=== PATIENT | female | born 1985 | race Caucasian/White ===

== ENCOUNTER 2016-06-14 12:41 | Emergency (ER) | payer OTHER ==
[2016-06-14] MEDS ORDERED: IOPAMIDOL 300 (61%) 150 ML VIAL IV ONE (12:42)
[2016-06-14] MEDS ORDERED: SODIUM CHLORIDE 0.9% 1,000 ML ONE (14:52)
[2016-06-14] MEDS ORDERED: MORPHINE SULFATE 4 MG/ML SYRINGE ONE (14:52)
[2016-06-14] MEDS ORDERED: ONDANSETRON 4 MG/2ML 2 ML VIAL ONE (14:52)
[2016-06-14 15:02] LABS: ABSOLUTE NEUTROPHIL COUNT 13.5 K/mm3 (1.8-7.7); BASO # 0.1 K/mm3 (0.0-0.2); BASO % 0.4 % (0.2-1.0); EOS # 0.2 (0.0-0.5); IMM NEUT # 0.1 K/mm3 (0-0.2); IMM NEUT% 0.3 % (0-1); LYMPH # 0.7 (1.0-4.8); LYMPH % 4.7 % (15-45); MEAN CELL VOLUME 84.3 fl (81.0-99.0); MEAN CORPUSCULAR HEMOGLOBIN 28.7 pg (27.0-31.0); MEAN CORPUSCULAR HGB CONC 34.1 g/dl (33.0-37.0); MEAN PLATELET VOLUME 9.9 fl (7.4-10.4); MONO # 0.7 (0.0-0.8); MONO % 4.3 % (4-12); NEUT % 89.3 % (43-75); PLATELET COUNT 377 K/mm3 (130-400); RED CELL DISTRIBUTION WIDTH 12.5 % (11.5-14.5)
[2016-06-14 15:05] LABS: URINE BILIRUBIN NEGATIVE (NEGATIVE); URINE BLOOD NEGATIVE (NEGATIVE); URINE GLUCOSE (UA) NEGATIVE (NEGATIVE); URINE LEUKOCYTE ESTERASE NEGATIVE (NEGATIVE); URINE NITRITE NEGATIVE (NEGATIVE); URINE PROTEIN NEGATIVE (NEGATIVE); URINE UROBILINOGEN NORMAL (0-1 mg/dl)
[2016-06-14 15:09] LABS: URINE APPEARANCE CLEAR; URINE COLOR STRAW
[2016-06-14] MEDS ORDERED: HYDROMORPHONE HCL 1 MG/ML SYRINGE ONE (15:13)
[2016-06-14 15:24] LABS: ALB/GLOB RATIO 1.3 (>1.0); ALBUMIN 4.4 gm/dL (3.5-5.7); CALCIUM 9.4 mg/dL (8.6-10.3)
--- NOTE | 2016-06-14 16:08 | US ---
ABDOMINAL-LIMITED COMPARISON: Ultrasound gallbladder 01/31/2016 HISTORY: 30-year-old female. Right upper quadrant pain for 12 hours. Cholecystectomy March 2016. White blood cell count elevated at 15.1 K. FINDINGS: Gall bladder: Cholecystectomy. Common hepatic duct: 2.1 mm. Common bile duct: 4.0-5.2 mm. Unable to see at the head of the pancreas because of bowel gas. Liver: Normal length, 13.6 cm. Normal echogenicity. No mass or cyst. No bile duct dilation. Hepatopedal flow in the portal vein. IMPRESSION: 1. Status post cholecystectomy. Normal appearance of the liver and the extra hepatic bile ducts. The report was sent to the emergency department electronic medical record system 06/14/2016 at 16:05
[2016-06-14] MEDS ORDERED: LORAZEPAM 2 MG/ML 1ML SDV ONE (17:35)
--- NOTE | 2016-06-14 18:15 | CT ---
CT ABDOMEN AND PELVIS WITH CONTRAST HISTORY: Upper abdominal pain. Prior laparoscopic cholecystectomy. TECHNIQUE: Following intravenous administration of 125 mL Isovue-300, contiguous axial images were acquired from the lung bases to the ischial tuberosities. Oral contrast was not administered. COMPARISON: 06/02/2015 FINDINGS: LUNG BASES: No gross airspace consolidation or pleural effusion. LIVER: No focal lesion. SPLEEN: No focal lesion. STOMACH: Moderate distention with suggested wall thickening of the pylorus and proximal duodenum. PANCREAS: No focal lesion. ADRENAL GLANDS: No mass effect. KIDNEYS: No focal lesion. No collecting system dilatation. GALLBLADDER: Present. BOWEL: Limited assessment of the distal colon due to decompression. No abnormal small bowel dilatation. Fluid content within the proximal colon. Wall enhancement of multiple small bowel loops. Findings of minor colonic diverticulosis without diverticulitis. APPENDIX: Not clearly identified. PELVIC ORGANS: 2.1 cm complex cystic lesion on the left, which may relate to ruptured cyst. FREE FLUID: Trace free fluid ABDOMINOPELVIC LYMPH NODES: No abnormally enlarged lymph nodes identified. ABDOMINAL AORTA: Normal caliber. OSSEOUS STRUCTURES: No grossly destructive lesions. IMPRESSION: 1. Wall thickening raising suspicion for gastroduodenitis, consider endoscopy if there is concern for possible peptic ulcer disease. 2. Status post cholecystectomy without biliary dilatation. 3. Nonspecific wall enhancement of small bowel which indicate enteritis. Fluid content within the colon compatible with diarrhea. 4. Nondominant complex cystic lesion of the left ovary, 2.1 cm, perhaps recently ruptured cyst. Results were electronically transmitted to the electronic medical record at 06/14/2016 1812 hours.
[2016-06-14] MEDS ORDERED: ONDANSETRON 4 MG ODT TAB ONE (19:26)
== END 2016-06-14 19:50 | disposition home or self-care (01) ==
LOC: ED 12:41
DX: K52.9 Noninfective gastroenteritis and colitis, unspecified (principal); J45.909 Unspecified asthma, uncomplicated
CPT/HCPCS: 83690; 84703; 85025; 80053; 81003; 74177; 76705; 96375 ×3; 99284 ×2; 96374; J2060; J1170; J2270; J2405; J7030; A9270; Q9967